=== PATIENT | male | born 1985 | race Caucasian/White ===

== ENCOUNTER 2017-05-15 16:14 | Emergency (ER) | payer BC ==
[~2017-05-15] VITALS: Ht 170.2 cm; Wt 77.1 kg
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
--- NOTE | 2017-05-15 17:11 | NUR ---
MARIANNE MACIEL AT BEDSIDE FOR EVAL.
--- NOTE | 2017-05-15 17:42 | NUR ---
Patient discharged to home in stable condition. Written and verbal after care instructions given. Patient verbalizes understanding of instruction.
[2017-05-15 17:43] VITALS: BP 126/84
== END 2017-05-15 17:45 | disposition home or self-care (01) ==
LOC: ER 16:21
DX: M54.5 Low back pain (principal); M54.2 Cervicalgia; G89.29 Other chronic pain
CPT/HCPCS: A4606; Z7610